=== PATIENT | female | born 1960 | race Caucasian/White ===

== ENCOUNTER → 2020-12-07 | Outpatient (CLI) | payer MEDICARE ==
[~2020-12-07] MED LIST: ALBU17IN INH; ASPI-1 PO; ASPI81TA86 PO; CALC25TA PO; CYCL-707 PO; EFFE150C2 PO; HYDR-727 PO; HYDR12.55 PO; LISI2.5T49 PO; LISI20TA33 PO; NEXI40CA PO; PRAV10TA4 PO; PROHANCE 279.3MG/ML 15ML VIAL As Ordered ONE; PROHANCE 279.3MG/ML 5ML VIAL As Ordered ONE; SYMB16INH INH; TYLE500T78 PO; TYSA1INJ IV; VITA-112 PO; VITA-243 PO; VITA100018 PO
--- NOTE | 2020-12-07 15:55 | REPVR ---
PROCEDURE INFORMATION: Exam: MR Thoracic Spine Without and With Contrast Exam date and time: 12/07/2020 2:09 PM Age: 60 years old Clinical indication: Condition or disease; Other: Ms; Additional info: Multiple sclerosis TECHNIQUE: Imaging protocol: Multiplanar magnetic resonance images of the thoracic spine without and with intravenous contrast. Contrast material: PROHANCE; Contrast volume: 20 ml; Contrast route: INTRAVENOUS (IV); COMPARISON: No relevant prior studies available. FINDINGS: Vertebrae: There is no thoracic vertebral fracture. The thoracic vertebra maintain their height. There is a large vertebral hemangioma within the T3 vertebra. There are additional smaller vertebral hemangiomas. Stir images demonstrate no evidence of marrow infiltrating lesion. There is no marrow edema. Spinal cord: The thoracic spinal cord is slightly obscured by pulsation artifact. No spinal cord signal abnormality or enhancement is identified. T1-T2: No significant disc disease. No significant spinal canal stenosis. T2-T3: No significant disc disease. No significant spinal canal stenosis. T3-T4: No significant disc disease. No significant spinal canal stenosis. T4-T5: No significant disc disease. No significant spinal canal stenosis. T5-T6: Less than 2 mm right paramedian disc protrusion slightly indents the thecal sac. No central or foraminal stenosis. T6-T7: 2 mm central disc protrusion slightly indents the thecal sac. No central or foraminal stenosis. T7-T8: 2 mm right paramedian disc herniation slightly indents the thecal sac. No central or foraminal stenosis. T8-T9: 3 mm central disc protrusion slightly indents the thecal sac. No central or foraminal stenosis. T9-T10: No significant disc disease. No significant spinal canal stenosis. T10-T11: No significant disc disease. No significant spinal canal stenosis. T11-T12: No significant disc disease. No significant spinal canal stenosis. Soft tissues: There is no paraspinous or intraspinal mass, hemorrhage, fluid collection or abnormal enhancement. IMPRESSION: 1. No evidence of demyelinating disease within the thoracic spinal cord. 2. Small disc protrusions as detailed above. No spinal stenosis. Electronically signed by: Danny Garcia On 12/07/2020 15:55:42 PM
== END ==
LOC: M RAD 13:05
DX: G35 Multiple sclerosis (principal)
CPT/HCPCS: 72157; A9576

== ENCOUNTER → 2021-11-28 | Outpatient (CLI) | payer MEDICARE ==
[~2021-11-28] MED LIST changes: -PROHANCE 279.3MG/ML 15ML VIAL As Ordered ONE; -PROHANCE 279.3MG/ML 5ML VIAL As Ordered ONE
[2021-11-28 17:47] LABS: BLOOD UREA NITROGEN 19 MG/DL (7-18); CARBON DIOXIDE LEVEL 27 MEQ/L (21-32); CHLORIDE LEVEL 106 MEQ/L (98-107); GLOMERULAR FILTRATION RATE > 60.0 (>45); GLUCOSE, FASTING 115 MG/DL (70-100); POTASSIUM SERUM 3.3 MEQ/L (3.5-5.1); SODIUM LEVEL 141 MEQ/L (136-145)
== END ==
LOC: M LAB 15:22
PROVIDERS: ATTEND Family Medicine
DX: G35 Multiple sclerosis (principal); I10 Essential (primary) hypertension

== ENCOUNTER → 2021-11-28 | Outpatient (CLI) | payer MEDICARE ==
[~2021-11-28] MED LIST changes: +PROHANCE 279.3MG/ML 15ML VIAL As Ordered ONE; +PROHANCE 279.3MG/ML 5ML VIAL As Ordered ONE
== END ==
LOC: M RAD 08:49
PROVIDERS: ATTEND Registered Nurse
DX: G35 Multiple sclerosis (principal)

== ENCOUNTER → 2021-11-29 | Outpatient (CLI) | payer MEDICARE ==
[~2021-11-29] MED LIST changes: -PROHANCE 279.3MG/ML 15ML VIAL As Ordered ONE; -PROHANCE 279.3MG/ML 5ML VIAL As Ordered ONE
== END ==
LOC: M RAD 09:07
PROVIDERS: ATTEND Registered Nurse
DX: G35 Multiple sclerosis (principal)

== ENCOUNTER → 2021-11-30 | Outpatient (CLI) | payer MEDICARE ==
[~2021-11-30] MED LIST changes: +PROHANCE 279.3MG/ML 15ML VIAL As Ordered ONE; +PROHANCE 279.3MG/ML 5ML VIAL As Ordered ONE
== END ==
LOC: M RAD 10:16
PROVIDERS: ATTEND Registered Nurse
DX: G35 Multiple sclerosis (principal)
CPT/HCPCS: 72157; A9576

== ENCOUNTER → 2023-04-21 | Outpatient (CLI) | payer MEDICARE ==
[~2023-04-21] MED LIST changes: -PROHANCE 279.3MG/ML 15ML VIAL As Ordered ONE; -PROHANCE 279.3MG/ML 5ML VIAL As Ordered ONE
== END ==
LOC: M RAD 09:02
DX: G35 Multiple sclerosis (principal)

== ENCOUNTER → 2024-03-07 | Outpatient (CLI) | payer MEDICARE ==
[~2024-03-07] MED LIST changes: -EFFE150C2 PO; +EFFE150C3 PO
== END ==
LOC: M PLARAD 12:49
PROVIDERS: ATTEND Physician Assistant
DX: S46.011D Strain of muscle(s) and tendon(s) of the rotator cuff of right shoulder, subsequent encounter (principal)